=== PATIENT | female | born 1940 | race Caucasian/White ===

== ENCOUNTER 2019-04-29 12:09 | Observation (INO) | payer MEDICARE ==
[~2019-04-29] VITALS: Ht 162.6 cm; Wt 74.8 kg
[~2019-04-29 12:09] MED LIST: FLUTICASONE NASAL; LEVO125T11 PO
[2019-04-29] MEDS ORDERED: SODIUM CHLORIDE 0.9% 1000ML 1,000 ML IV ONE ×2 (12:12→12:37)
[2019-04-29] MEDS ORDERED: DILTIAZEM HCL 5 MG/ML 10 ML VIAL IV ONE (12:13)
[2019-04-29] MEDS ORDERED: DILTIAZEM HCL 125 MG/25 ML VIAL IV ONE (12:21)
[2019-04-29] MEDS ORDERED: SODIUM CHLORIDE 0.9% 100 ML IV ONE (12:22)
[2019-04-29 12:26] LABS: BASOPHILS % (AUTO) 0.4 % (0.0-5.0); EOSINOPHILS % (AUTO) 0.9 % (0.0-8.0); HEMATOCRIT 44.6 % (36-48); LYMPHOCYTES % (AUTO) 19.2 % (21.0-51.0); MEAN CORPUSCULAR HEMOGLOBIN 31.3 pg (27.0-33.0); MEAN CORPUSCULAR HGB CONC 33.3 g/dL (32.0-36.0); MEAN CORPUSCULAR VOLUME 93.9 fL (79-99); NEUTROPHILS % (AUTO) 72.5 % (40.0-77.0); NUCLEATED RED BLOOD CELLS 0.1 % (0.0-0.19); PLATELET COUNT (AUTO) 310 K/uL (130-400); RED BLOOD CELL COUNT(AUTO) 4.75 MIL/uL (4.00-5.50); RED CELL DISTRIBUTION WIDTH 13.2 % (11.0-15.5); WHITE BLOOD COUNT (AUTO) 11.1 K/uL (4.8-10.8)
[2019-04-29 12:36] LABS: CREATININE 0.7 mg/dL (0.5-1.5); POTASSIUM 3.6 mmol/L (3.5-5.1)
[2019-04-29 12:39] LABS: INR 0.95 (0.85-1.15); PARTIAL THROMBOPLASTIN TIME 27.3 SEC (26.3-35.5)
[2019-04-29 12:42] LABS: ALBUMIN 3.8 g/dL (3.5-5.0); BILIRUBIN,TOTAL 0.6 mg/dL (0.2-1.0); MAGNESIUM 2.1 mg/dL (1.80-2.40); TOTAL PROTEIN, SERUM 7.9 g/dL (6.0-8.3)
[2019-04-29] MEDS ORDERED: ASPIRIN 325 MG TABLET ONE (12:50)
[2019-04-29 12:59] LABS: B-TYPE NATRIURETIC PEPTIDE 78 pg/mL (0-100)
[2019-04-29 13:07] LABS: APPEARANCE,URINE Clear (CLEAR); BILIRUBIN,URINE Negative (NEGATIVE); COLOR,URINE Yellow (YELLOW); GLUCOSE, URINE (UA) Negative (NEGATIVE); KETONES,URINE Trace mg/dL (NEGATIVE); LEUKOCYTE ESTERASE ,URINE Small (NEGATIVE); NITRATE,URINE Negative (NEGATIVE); OCCULT BLOOD,URINE Negative (NEGATIVE); PH,URINE 6.5 (5.0-8.0); PROTEIN,URINE Negative (NEGATIVE); UROBILINOGEN,URINE 0.2 mg/dL (0.2-1.0)
[2019-04-29 13:26] LABS: BACTERIA,URINE Rare /HPF (None Seen); RBC,URINE 0-1 /HPF (0-1); SQUAMOUS EPITHELIAL CELL,UR Rare /HPF (0-2); WBC,URINE 0-1 /HPF (0-1)
[2019-04-29] MEDS ORDERED: ENOXAPARIN SODIUM 30 MG/0.3 ML SQ ONE (14:49)
[2019-04-29] MEDS ORDERED: ACETAMINOPHEN 325 MG TAB PO PRN (15:15)
[2019-04-29] MEDS ORDERED: DILTIAZEM 125MG+100 ML NS 125 ML IV SCH (15:15)
[2019-04-29] MEDS ORDERED: LORAZEPAM 0.5 MG TABLET PO PRN (15:15)
[2019-04-29] MEDS ORDERED: ONDANSETRON HCL 4 MG/2 ML VIAL IVP PRN (15:15)
[2019-04-29] MEDS ORDERED: ENOXAPARIN SODIUM 100 MG/1 ML SQ ONE (16:38)
[2019-04-29] MEDS ORDERED: METOPROLOL TARTRATE 25 MG TAB ONE (16:38)
[2019-04-29] MEDS ORDERED: PANTOPRAZOLE SODIUM 40 MG TABLET.DR PO ONE (16:38)
[2019-04-29] MEDS: INSULIN R PO SS1 SQ SCH (20:22)
[2019-04-29] MEDS: METOPROLOL TARTRATE 25 MG TAB PO SCH ×2 (20:29→20:30)
[2019-04-29 20:42] VITALS: BP 115/62
[2019-04-30 00:15] VITALS: BP 112/60
[2019-04-30 03:40] LABS: HEMATOCRIT 36.8 % (36-48); MEAN CORPUSCULAR HEMOGLOBIN 31.3 pg (27.0-33.0); MEAN CORPUSCULAR HGB CONC 33.4 g/dL (32.0-36.0); MEAN CORPUSCULAR VOLUME 93.9 fL (79-99); PLATELET COUNT (AUTO) 275 K/uL (130-400); RED BLOOD CELL COUNT(AUTO) 3.92 MIL/uL (4.00-5.50); RED CELL DISTRIBUTION WIDTH 12.9 % (11.0-15.5)
[2019-04-30 03:54] LABS: ALBUMIN 2.9 g/dL (3.5-5.0); BILIRUBIN,TOTAL 0.6 mg/dL (0.2-1.0); CREATININE 0.7 mg/dL (0.5-1.5); POTASSIUM 3.4 mmol/L (3.5-5.1); TOTAL PROTEIN, SERUM 6.2 g/dL (6.0-8.3)
[2019-04-30 03:59] LABS: T4 (THYROXINE) 9.3 ug/dL (4.7-13.3)
[2019-04-30 04:37] VITALS: BP 126/71
[2019-04-30] MEDS: INSULIN R PO SS1 SQ SCH (06:36)
[2019-04-30 07:24] VITALS: BP 134/74
[2019-04-30] MEDS: METOPROLOL TARTRATE 25 MG TAB PO SCH (08:25)
--- NOTE | 2019-04-30 08:30 | NUR ---
AM ASSESSMENT PT LAYING IN BED, HOB ELEVATED 30 DEGREES, WATCHING TV. A/O X 3 . NO SOB. NO DISTRESS NOTED. DENIES CHEST PAIN OR DISCOMFORT. DENIES PALPITATIONS. TELE: SR 70s. DENIES N/V AND/OR DIARRHEA. UP W/ASSISTANCE. INSTRUCTED TO CALL FOR ASSISTANCE. CALL TUCKER W/IN REACH.
[2019-04-30] MEDS ORDERED: PANTOPRAZOLE SODIUM 40 MG TABLET.DR PO SCH (09:00)
[2019-04-30] MEDS ORDERED: ENOXAPARIN SODIUM 80 MG/0.8 ML SQ SCH (09:00)
[2019-04-30] MEDS ORDERED: ASPIRIN 81 MG EC TAB PO SCH (09:00)
[2019-04-30 11:06] VITALS: BP 137/72
[2019-04-30] MEDS ORDERED: APIX5TAB PO (11:52)
[2019-04-30] MEDS ORDERED: METO25 PO (11:52)
[2019-04-30] MEDS ORDERED: LIDOCAINE HCL-MPF 1% 2ML VIAL IVP PRN (13:30)
[2019-04-30] MEDS ORDERED: POTASSIUM CHLORIDE 20MEQ/100ML 100 ML IV PRN (13:30)
[2019-04-30] MEDS ORDERED: POTASSIUM CHLORIDE 10% ELIXIR 20 MEQ/15 ML UDCUP PO PRN (13:30)
[2019-04-30] MEDS ORDERED: POTASSIUM CHLORIDE 20 MEQ ERTAB PO PRN (13:30)
--- NOTE | 2019-04-30 14:05 | NUR ---
NOTIFICATION KANE LARES PIPE MAKER NOTIFIED DR VALDEZ PLANS TO DC PT HOME THIS EVENING IF 2D ECHO NORMAL. PT TO GET CARDIAC EVENT MONITOR [email or web address].
--- NOTE | 2019-04-30 15:30 | NUR ---
DISCHARGE TELE NORMA REMOVED. IV DISCONTINUED.
--- NOTE | 2019-04-30 15:45 | NUR ---
DISCHARGE VERBAL & WRITTEN DISCHARGE INSTRUCTIONS REVIEWED & GIVEN TO P& DAUGHTER. QUESTIONS ENCOURAGED & CLARIFIED. PROPER IDENTIFICATION & MGT OF AFIB REVIEWED. NEW PRESCRIBED MEDICATIONS REVIEWED. PRESCRIPTION GIVEN TO PT; SIGNED COPY PLACED IN CHART. PT TO GO TO [facility] 05/01/19 TO PICK CARDIAC EVENT MONITOR. F/U APPT INFO REVIEWED. PT & DAUGHTER TO GATHER PERSONAL BELONGINGS. WILL NOTIFY STAFF WHEN READY TO BE TAKEN TO PRIVATE VEHICLE.
[2019-04-30 15:47] VITALS: BP 138/81
--- NOTE | 2019-04-30 16:05 | NUR ---
DISCHARGE PT TAKEN TO PRIVATE VEHICLE VIA WC BY A [facility]NY PCP, ACCOMPANIED BY DAUGHTER. NO DISTRESS NOTED.
[2019-04-30] MEDS ORDERED: APIXABAN 5 MG TABLET PO SCH (21:00)
[2019-05-01] MEDS ORDERED: LEVOTHYROXINE 125 MCG TABLET PO SCH (09:00)
== END 2019-04-30 16:05 | disposition home or self-care (01) ==
LOC: EDH 12:09 → EDHIP 13:10 → 2AH 20:15
PROVIDERS: ADMIT Internal Medicine; ATTEND Internal Medicine
DX: I48.0 Paroxysmal atrial fibrillation (principal); E78.5 Hyperlipidemia, unspecified; E87.6 Hypokalemia; R55 Syncope and collapse; E89.0 Postprocedural hypothyroidism; I10 Essential (primary) hypertension; I34.0 Nonrheumatic mitral (valve) insufficiency; Z82.49 Family history of ischemic heart disease and other diseases of the circulatory system; Z87.442 Personal history of urinary calculi; Z90.710 Acquired absence of both cervix and uterus; Z90.49 Acquired absence of other specified parts of digestive tract; Z88.0 Allergy status to penicillin; Z88.2 Allergy status to sulfonamides
CPT/HCPCS: 36415 ×2; 70450; 71045; 71250; 80053 ×2; 80061; 81001; 82550; 83735; 83880; 84436; 84443; 84484 ×3; 85025; 85027; 85610; 85730; 93005 ×3; 93306; 96372; 99291; G0378 ×27; J1650 ×3; J3490 ×2; J7030 ×2

== ENCOUNTER 2019-05-20 08:43 | Emergency (ER) | payer MEDICARE ==
[~2019-05-20 08:43] MED LIST changes: +APIX5TAB PO; +METO25 PO
[2019-05-20 09:55] LABS: BASOPHILS % (AUTO) 0.5 % (0.0-5.0); EOSINOPHILS % (AUTO) 1.5 % (0.0-8.0); HEMATOCRIT 40.6 % (36-48); LYMPHOCYTES % (AUTO) 21.2 % (21.0-51.0); MEAN CORPUSCULAR HGB CONC 33.3 g/dL (32.0-36.0); MEAN CORPUSCULAR VOLUME 93.3 fL (79-99); MONOCYTES % (AUTO) 8.2 % (3.0-13.0); NEUTROPHILS % (AUTO) 68.6 % (40.0-77.0); PLATELET COUNT (AUTO) 279 K/uL (130-400); RED BLOOD CELL COUNT(AUTO) 4.35 MIL/uL (4.00-5.50); RED CELL DISTRIBUTION WIDTH 13.6 % (11.0-15.5); WHITE BLOOD COUNT (AUTO) 7.4 K/uL (4.8-10.8)
[2019-05-20 10:07] LABS: CREATININE 0.6 mg/dL (0.5-1.5); POTASSIUM 3.9 mmol/L (3.5-5.1)
[2019-05-20 10:08] LABS: INR 1.02 (0.85-1.15); PROTHROMBIN TIME 10.7 SEC (9.6-11.6)
[2019-05-20 10:12] LABS: ALBUMIN 3.4 g/dL (3.5-5.0); BILIRUBIN,TOTAL 0.7 mg/dL (0.2-1.0); TOTAL PROTEIN, SERUM 7.1 g/dL (6.0-8.3)
[2019-05-20 10:22] LABS: PARTIAL THROMBOPLASTIN TIME 30.1 SEC (26.3-35.5)
== END 2019-05-20 12:00 | disposition home or self-care (01) ==
LOC: EDH 08:43
DX: S86.911A Strain of unspecified muscle(s) and tendon(s) at lower leg level, right leg, initial encounter (principal); E78.5 Hyperlipidemia, unspecified; I10 Essential (primary) hypertension; E07.9 Disorder of thyroid, unspecified; Z98.890 Other specified postprocedural states; Z90.89 Acquired absence of other organs; Z88.1 Allergy status to other antibiotic agents; Z88.2 Allergy status to sulfonamides; X58.XXXA Exposure to other specified factors, initial encounter; Y93.89 Activity, other specified; Y92.009 Unspecified place in unspecified non-institutional (private) residence as the place of occurrence of the external cause; Y99.8 Other external cause status
CPT/HCPCS: 36415; 80053; 85025; 85610; 85730; 93971

== ENCOUNTER → 2019-12-17 | Outpatient (CLI) | payer MEDICARE ==
[~2019-12-17] MED LIST changes: +IOHEXOL 350 MG/ML 100ML INFUS..BTL IV ONE
== END | disposition home or self-care (01) ==
LOC: RAH 08:51
PROVIDERS: ATTEND Urology
DX: N20.0 Calculus of kidney (principal); M47.814 Spondylosis without myelopathy or radiculopathy, thoracic region
CPT/HCPCS: 74400; Q9967

== ENCOUNTER → 2020-05-16 | Outpatient (CLI) | payer MEDICARE | END | disposition home or self-care (01) | LOC: RAH 09:57 | PROVIDERS: ATTEND Physical Medicine & Rehabilitation | DX: M43.17 Spondylolisthesis, lumbosacral region (principal); M48.07 Spinal stenosis, lumbosacral region ==

== ENCOUNTER → 2020-06-10 | Outpatient (CLI) | payer MEDICARE ==
[~2020-06-10] MED LIST changes: -IOHEXOL 350 MG/ML 100ML INFUS..BTL IV ONE
== END | disposition home or self-care (01) ==
LOC: RAH 08:36
PROVIDERS: ATTEND Physical Medicine & Rehabilitation
DX: M51.26 Other intervertebral disc displacement, lumbar region (principal); M43.16 Spondylolisthesis, lumbar region; M54.16 Radiculopathy, lumbar region
CPT/HCPCS: 72148

== ENCOUNTER → 2022-09-11 | Outpatient (CLI) | payer MEDICARE | END | disposition home or self-care (01) | LOC: SHCH 12:56 | PROVIDERS: ATTEND Internal Medicine Cardiovascular Disease | DX: I37.1 Nonrheumatic pulmonary valve insufficiency (principal); R07.9 Chest pain, unspecified; R55 Syncope and collapse | CPT/HCPCS: 93306 ==

== ENCOUNTER → 2022-09-14 | Outpatient (CLI) | payer MEDICARE ==
[~2022-09-14] MED LIST changes: +REGADENOSON 0.4 MG/5 ML PF SYG IVP SCH
== END | disposition home or self-care (01) ==
LOC: SHCH 08:29
PROVIDERS: ATTEND Internal Medicine Cardiovascular Disease
DX: R07.9 Chest pain, unspecified (principal); R55 Syncope and collapse
CPT/HCPCS: 78452; 96374; 93017; J2785; A9500 ×2

== ENCOUNTER 2022-10-16 09:21 | Day surgery (SDC) | payer MEDICARE ==
[2022-10-12 09:23] LABS: BASOPHILS % (AUTO) 0.3 % (0.0-5.0); EOSINOPHILS % (AUTO) 1.6 % (0.0-8.0); HEMATOCRIT 45.7 % (36-48); LYMPHOCYTES % (AUTO) 24.4 % (21.0-51.0); MEAN CORPUSCULAR HEMOGLOBIN 30.1 pg (27.0-33.0); MEAN CORPUSCULAR HGB CONC 32.2 g/dL (32.0-36.0); MEAN CORPUSCULAR VOLUME 93.5 fL (79-99); MONOCYTES % (AUTO) 6.8 % (3.0-13.0); NEUTROPHILS % (AUTO) 66.5 % (40.0-77.0); PLATELET COUNT (AUTO) 299 K/uL (130-400); RED BLOOD CELL COUNT(AUTO) 4.89 MIL/uL (4.00-5.50); RED CELL DISTRIBUTION WIDTH 14.2 % (11.0-15.5); WHITE BLOOD COUNT (AUTO) 7.9 K/uL (4.8-10.8)
[2022-10-12 09:36] LABS: INR 0.98 (0.85-1.15); PROTHROMBIN TIME 10.7 SEC (9.6-11.6)
[2022-10-12 09:37] LABS: PARTIAL THROMBOPLASTIN TIME 27.8 SEC (26.3-35.5)
[2022-10-12 09:46] LABS: B-TYPE NATRIURETIC PEPTIDE 51 pg/mL (0-100)
[2022-10-12 10:02] LABS: CREATININE 0.7 mg/dL (0.5-1.5); POTASSIUM 4.2 mmol/L (3.5-5.1)
[2022-10-15 12:15] VITALS: BP 171/70
[2022-10-16] VITALS (10 sets, daily range): BP systolic 132–168; BP diastolic 62–82
[~2022-10-16] VITALS: Ht 160 cm; Wt 78.9 kg
[~2022-10-16 09:21] MED LIST changes: +CALC-1209 PO; +DiphenhydrAMINE HCL 50 MG/ML VIAL IVP SCH; +EZET10TA48 PO; +FLUT16H NASAL; -FLUTICASONE NASAL; -METO25 PO; +OMEP20TA2 PO; -REGADENOSON 0.4 MG/5 ML PF SYG IVP SCH; +SOLU-MEDROL 125MG VIAL IVP SCH; +SOTA80TA PO
[2022-10-16] MEDS ORDERED: 0.9%NACL 1000ML 1,000 ML IV ONE (09:31)
[2022-10-16 09:48] LABS: APPEARANCE,URINE CLEAR (CLEAR); BILIRUBIN,URINE NEGATIVE (NEGATIVE); COLOR,URINE LIGHT-YELLOW (YELLOW); GLUCOSE, URINE (UA) NEGATIVE (NEGATIVE); KETONES,URINE NEGATIVE (NEGATIVE); LEUKOCYTE ESTERASE ,URINE 250 Leu/uL (NEGATIVE); NITRATE,URINE NEGATIVE (NEGATIVE); OCCULT BLOOD,URINE SMALL (NEGATIVE); PH,URINE 6.5 (5.0-8.0); PROTEIN,URINE NEGATIVE (NEGATIVE); UROBILINOGEN,URINE 0.2 mg/dL (0.2-1.0)
[2022-10-16 10:00] LABS: BACTERIA,URINE RARE /HPF (None Seen); MUCUS,URINE RARE LPF (None Seen); SQUAMOUS EPITHELIAL CELL,UR RARE /HPF (0-2)
[2022-10-16] MEDS ORDERED: NITROGLYCERIN 50MG VIAL ONE (11:00)
[2022-10-16] MEDS ORDERED: HEPARIN 10,000 UNIT/10ML (1,000 UNIT/ML) VIAL ONE (11:00)
[2022-10-16] MEDS ORDERED: IOHEXOL-350 50ML VIAL IV ONE (11:00)
[2022-10-16] MEDS ORDERED: IOHEXOL 350 MG/ML 100ML INFUS..BTL IV ONE (11:01)
[2022-10-16] MEDS ORDERED: MIDAZOLAM HCL 1 MG/ML 2ML VIAL ONE (11:01)
[2022-10-16] MEDS ORDERED: FENTANYL CITRATE PF 50 MCG/1 ML 2ML VIAL ONE (11:01)
[2022-10-16] MEDS ORDERED: LIDOCAINE HCL 400MG/20ML VIAL ONE (11:01)
== END 2022-10-16 16:00 | disposition home or self-care (01) ==
LOC: DAH 09:21
PROVIDERS: ATTEND Internal Medicine Cardiovascular Disease
DX: I25.118 Atherosclerotic heart disease of native coronary artery with other forms of angina pectoris (principal); I50.32 Chronic diastolic (congestive) heart failure; I47.29 Other ventricular tachycardia; R55 Syncope and collapse; I48.0 Paroxysmal atrial fibrillation; I25.2 Old myocardial infarction; E03.9 Hypothyroidism, unspecified; Z79.890 Hormone replacement therapy; Z79.01 Long term (current) use of anticoagulants; Z79.899 Other long term (current) drug therapy; Z88.0 Allergy status to penicillin; Z90.710 Acquired absence of both cervix and uterus; Z90.49 Acquired absence of other specified parts of digestive tract; Z98.890 Other specified postprocedural states; Z88.8 Allergy status to other drugs, medicaments and biological substances; Z88.2 Allergy status to sulfonamides; Z82.49 Family history of ischemic heart disease and other diseases of the circulatory system; Z80.9 Family history of malignant neoplasm, unspecified; Z88.3 Allergy status to other anti-infective agents
CPT/HCPCS: 80048; 83880; 85025; 85610; 85730; 36415; 71045; 93005; 93458; 87088; 81001; C1894; C1760; J1200; J3490 ×2; J7030; J2930; J2250; J1644; Q9967; A4215; A4222; A4221; A4663; A4216; A4606; Q9965; A4223 ×3; 96374; 96375; 99156; 99157; J3010

== ENCOUNTER → 2023-09-26 | Outpatient (CLI) | payer MEDICARE ==
[~2023-09-26] MED LIST changes: +CALC-190 PO; +CHOL400T33 PO; +CYAN10007 SQ; +CYCL30DR OU; -DiphenhydrAMINE HCL 50 MG/ML VIAL IVP SCH; +LEVO-70 PO; +METO-408 PO; +METR-172 PO; +OMEP20CA12 PO; +PSEU-225 PO; -SOLU-MEDROL 125MG VIAL IVP SCH
== END | disposition home or self-care (01) ==
LOC: RAH 10:43
PROVIDERS: ATTEND Physical Medicine & Rehabilitation
DX: M43.16 Spondylolisthesis, lumbar region (principal); M54.2 Cervicalgia; M99.01 Segmental and somatic dysfunction of cervical region; M48.061 Spinal stenosis, lumbar region without neurogenic claudication; M47.812 Spondylosis without myelopathy or radiculopathy, cervical region; M48.02 Spinal stenosis, cervical region
CPT/HCPCS: 72050; 72114

== ENCOUNTER → 2023-10-15 | Outpatient (CLI) | payer MEDICARE | END | disposition home or self-care (01) | LOC: RAH 13:09 | PROVIDERS: ATTEND Physical Medicine & Rehabilitation | DX: M43.16 Spondylolisthesis, lumbar region (principal); M48.061 Spinal stenosis, lumbar region without neurogenic claudication | CPT/HCPCS: 72148 ==

== ENCOUNTER → 2025-04-14 | Outpatient (CLI) | payer MEDICARE ==
[~2025-04-14] MED LIST changes: +IOHEXOL-350 75 ML VIAL IV ONE
--- NOTE | 2025-04-14 13:33 | HMCIMG ---
CT abdomen pelvis without contrast History: Pain COMPARISON: None Technique: Routine helical scanning at 5mm collimation through the abdomen and pelvis was performed after oral and intravenous contrast. Findings: The lung bases are clear. Gallbladder is surgically absent. The liver, spleen, pancreas, adrenal glands and kidneys are normal in appearance except for nonobstructing left nephrolithiasis. No pathologic lymphadenopathy is evident. The intestinal gas pattern shows no evidence of dilatation to suggest obstruction or adynamic ileus. There is no evidence of constipation and no bowel wall lesions are noted to suggest neoplasm. There is diverticulosis of the colon, particularly involving the sigmoid. In addition, there are acute inflammatory changes to suggest acute diverticulitis. There is no evidence There is no evidence of pneumoperitoneum. The appendix is unremarkable. The pelvic viscera are normal in CT appearance. The perirectal fat planes are clear. The visualized osseous elements are normal for the patient's age. IMPRESSION: Acute sigmoid diverticulitis. No evidence of perforation.
== END | disposition home or self-care (01) ==
LOC: RAH 11:10
PROVIDERS: ATTEND Family Medicine
DX: K57.32 Diverticulitis of large intestine without perforation or abscess without bleeding (principal); R63.4 Abnormal weight loss; R19.8 Other specified symptoms and signs involving the digestive system and abdomen
CPT/HCPCS: 74176; Q9967

== ENCOUNTER 2025-05-08 17:12 | Emergency (ER) | payer MEDICARE ==
[~2025-05-08] VITALS: Ht 160 cm; Wt 77.1 kg
[~2025-05-08 17:12] MED LIST changes: -IOHEXOL-350 75 ML VIAL IV ONE
[2025-05-08 17:35] LABS: BASOPHILS # (AUTO) 0.02 K/uL (0.00-0.20); BASOPHILS % (AUTO) 0.2 % (0.0-5.0); EOSINOPHILS # (AUTO) 0.26 K/uL (0.00-0.70); EOSINOPHILS % (AUTO) 2.1 % (0.0-8.0); HEMATOCRIT 42.1 % (36-48); IMMATURE GRANULOCYTE ABSOLUTE 0.04 K/uL (0-1); LYMPHOCYTES # (AUTO) 2.1 K/uL (1.0-4.8); LYMPHOCYTES % (AUTO) 16.2 % (21.0-51.0); MEAN CORPUSCULAR HEMOGLOBIN 29.1 pg (27.0-33.0); MEAN CORPUSCULAR HGB CONC 32.5 g/dL (32.0-36.0); MEAN CORPUSCULAR VOLUME 89.6 fL (79-99); MONOCYTES # (AUTO) 1.1 K/uL (0.1-1.0); MONOCYTES % (AUTO) 8.3 % (3.0-13.0); NEUTROPHILS # (AUTO) 9.2 K/uL (1.8-7.7); NEUTROPHILS % (AUTO) 72.9 % (40.0-77.0); PLATELET COUNT (AUTO) 390 K/uL (130-400); RED CELL DISTRIBUTION WIDTH 14.5 % (11.0-15.5); WHITE BLOOD COUNT (AUTO) 12.6 K/uL (4.8-10.8)
[2025-05-08] MEDS: MAGNESIUM CITRATE 296 ML SOLUTION PO ONE (17:35)
[2025-05-08] MEDS: LACTULOSE 20 GM/30 ML UDCUP PO ONE (17:35)
--- NOTE | 2025-05-08 17:40 | NUR ---
X1 SALINE ENEMA GIVEN PER ORDER. TOLERATED WELL
[2025-05-08 17:42] LABS: CREATININE 0.6 mg/dL (0.5-1.0); POTASSIUM 3.7 mmol/L (3.5-5.1)
--- NOTE | 2025-05-08 18:14 | HMCIMG ---
Exam Type: ABD 1VW Clinical Information: constipation Comparison: None Findings: Abdomen demonstrates no evidence of pathologic calcification or soft tissue mass. There are no radiopacities to suggest calculous disease. The intestinal gas pattern is within normal limits without evidence of dilatation to suggest obstruction or adynamic ileus. The bony structures are unremarkable. IMPRESSION: Normal abdomen.
--- NOTE | 2025-05-08 18:23 | ERN ---
General Chief Complaint: Constipation Stated Complaint: CONSTIPATION Time Seen by MD: 17:14 Source: patient History of Present Illness Initial Comments This is a an 84-year-old female coming in to be evaluated for constipation. Per patient she has not been able to defecate for three days. She has taken [id number] medications she states it has not been successful. Allergies: Coded Allergies: Iodinated Contrast Media (Unverified Allergy, Severe, RASH, 03/22/23) Penicillins (Unverified Allergy, Unknown, 11/07/16) Sulfa (Sulfonamide Antibiotics) (Unverified Allergy, Unknown, 11/07/16) iodine (Unverified Allergy, Unknown, 10/15/22) Home Meds Active Scripts Metronidazole (Metronidazole) 500 Mg Tablet, 500 MG PO TID for 7 Days, #21 TAB Prov:KANDACE BRIONES BUSINESS AND MARKETING TEACHER 10/26/22 Levofloxacin (Levofloxacin) 500 Mg Tablet, 500 MG PO DAILY for 7 Days, #7 TAB Prov:KANDACE BRIONES BUSINESS AND MARKETING TEACHER 10/26/22 Reported Medications Pseudoephedrine HCl (Pseudoephedrine HCl) 60 Mg Tablet, 60 MG PO QDP, TAB 10/25/22 Cholecalciferol (Vitamin D3) (Vitamin D-400) 10 Mcg Tablet, 10 MCG PO DAILY, TAB 10/25/22 Calcium Carbonate/Vitamin D3 (Calcium + Vitamin D Tablet) 1 Each Tablet, 600 EACH PO AM, TAB 10/25/22 Fluticasone Propionate (Flonase Nasal [place]) 50 Mcg/[place], 50 MCG NASAL Q4HPRN, SPRAY 10/25/22 Omeprazole (Omeprazole) 20 Mg Capsule.dr, 20 MG PO AM, CAP 10/25/22 Cyanocobalamin (Vitamin B-12) (Cyanocobalamin Injection) 1,000 Mcg/1 Ml Vial, 1 ML SQ QMONTH 10/25/22 Cyclosporine (Restasis) 1 Each Droperette, 0.06 DROP OU BID 10/25/22 Ezetimibe (Ezetimibe) 10 Mg Tablet, 1 TAB PO QDP 10/25/22 Sotalol HCl (Sotalol) 80 Mg Tablet, 1 TAB PO BID 10/25/22 Levothyroxine Sodium (Levothyroxine Sodium) 125 Mcg Tablet, 1 TAB PO QDP 10/25/22 Metoprolol Succinate (Metoprolol Succinate) 25 Mg Tab.er.24h, 0.5 TAB PO QDP 10/25/22 Apixaban (Eliquis) 5 Mg Tablet, 1 TAB PO BID 10/25/22 Calcium Carbonate/Vitamin D3 (Calcium 600 + Vit D Tablet) 1 Each Tablet, 1 EACH PO BID, TAB 10/15/22 Fluticasone Propionate (Flonase Nasal [place]) 50 Mcg/[place], 1 SPRY NASAL HS, SPRAY 10/15/22 Omeprazole Magnesium (Prilosec Otc) 20 Mg Tablet.dr, 20 MG PO HS, TAB 10/15/22 Ezetimibe (Ezetimibe) 10 Mg Tablet, 10 MG PO HS, TAB 10/15/22 Apixaban (Eliquis) 5 Mg Tablet, 5 MG PO BID, TAB START ELIQUIS ON 10/17/22 10/15/22 Sotalol HCl (Sotalol) 80 Mg Tablet, 80 MG PO BID, TAB 10/15/22 Levothyroxine Sodium (Levothyroxine Sodium) 125 Mcg Tablet, 125 MCG PO AM, TAB 11/07/16 Past Medical History Past Medical History: A-Fib, Diverticulosis, Other Medical History Other: constipation Past Surgical History: Hysterectomy, Cholecystectomy, Other Surgical History Other: back sx ROS Dictation CONSTITUTIONAL: No chills, no fever, no weakness, no diaphoresis, no malaise. HEAD/FACE: No signs of trauma. EENT: No eye pain, no blurred vision, no tearing, no double vision, no ear pain, no ear discharge, no nose pain, no nasal congestion, no throat pain, no throat swelling, no mouth pain. RESPIRATORY: No cough, no orthopnea, no SOB, no stridor, no wheezing. CARDIOVASCULAR: No chest pain, no edema, no palpitations, no syncope. GASTROINTESTINAL/ABDOMINAL: abdominal pain, constipation, no diarrhea, no nausea, no vomiting. GENITOURINARY: No abnormal discharge, no dysuria, no frequent urination, no hematuria. No complaints of pain in the genitals. MUSCULOSKELETAL: No back pain, no gout, no joint pain, no joint swelling, no muscle pain, no muscle stiffness, no neck pain. INTEGUMENTARY: No change in color, no change in hair/nails, no dryness, no lesion, no lumps, no rash. NEUROLOGICAL/PSYCH: No anxiety, not depressed, no emotional problem, no headache, no numbness, no pre-existing deficit, no history of seizures, no tremors, no weakness. HEMATOLOGIC/LYMPHATIC: Not anemic, no history of blood clots, no apparent bleeding, no bruising, glands not swollen. All Systems Negative, Except as Noted. Physical Exam Physical Exam Dictation VITAL SIGNS: Reviewed. GENERAL APPEARANCE: Alert, oriented x3, no acute distress, obese. HEAD AND FACE: Non-traumatic. EYES: PERRL, pink conjunctivas, eyelid no trauma, anterior chamber clear. EARS: Pinnas intact and no signs of trauma or erythema. Ear canals clear and no discharge. TMs no erythema. NOSE: No discharge, no bleeding. OROPHARYNX: Mouth normal, teeth no caries, tongue pink. Pharynx clear, no erythema. Tonsils no exudates, no abscesses noted. Mucous membrane moist. NECK: Supple, non-tender, no thyromegaly, no masses, no JVD, no bruits. BREAST: Deferred. CHEST: No tenderness, no crepitus, no paradoxical movement, no retractions. LUNGS: Clear, well-ventilated, symmetric, no rales, no wheezing, no rhonchi, no stridor, good breath sounds bilaterally. HEART: Regular rate, regular rhythm, no murmur, no gallops. VASCULAR: No peripheral edema. ABDOMEN: Soft, positive bowel sounds, nondistended, no guarding, nontender, no rebound, no masses no hepatomegaly, no splenomegaly, no Hernandez's sign, no hernias. RECTAL: Deferred. GENITAL: Deferred. NEUROLOGICAL: Normal speech, gross motor function intact, gross sensory function intact. MUSCULOSKELETAL: Neck nontender, full range of motion, back nontender, full range of motion. EXTREMITIES: Nontender, full range of motion. SKIN: Color pink, dry, no turgor, no rash, no lacerations, no abrasions, no contusions. LYMPHATICS: Deferred. Results Laboratory and Microbiology Lab and Micro Result Laboratory Tests Test 05/08/25 17:30 White Blood Count 12.6 K/uL (4.8-10.8) H Red Blood Count 4.70 MIL/uL (4.00-5.50) Hemoglobin 13.7 g/dL (12.0-16.0) Hematocrit 42.1 % (36-48) Mean Corpuscular Volume 89.6 fL (79-99) Mean Corpuscular Hemoglobin 29.1 pg (27.0-33.0) Mean Corpuscular Hemoglobin Concent 32.5 g/dL (32.0-36.0) Red Cell Distribution Width 14.5 % (11.0-15.5) Platelet Count 390 K/uL (130-400) Mean Platelet Volume 9.0 fL (7.5-10.5) Immature Granulocyte % (Auto) 0.3 % (0-1) Neutrophils (%) (Auto) 72.9 % (40.0-77.0) Lymphocytes (%) (Auto) 16.2 % (21.0-51.0) L Monocytes (%) (Auto) 8.3 % (3.0-13.0) Eosinophils (%) (Auto) 2.1 % (0.0-8.0) Basophils (%) (Auto) 0.2 % (0.0-5.0) Neutrophils # (Auto) 9.2 K/uL (1.8-7.7) H Lymphocytes # (Auto) 2.1 K/uL (1.0-4.8) Monocytes # (Auto) 1.1 K/uL (0.1-1.0) H Eosinophils # (Auto) 0.26 K/uL (0.00-0.70) Basophils # (Auto) 0.02 K/uL (0.00-0.20) Absolute Immature Granulocyte (auto 0.04 K/uL (0-1) Nucleated Red Blood Cells 0.0 % (0.0-0.19) Sodium Level 137 mmol/L (136-145) Potassium Level 3.7 mmol/L (3.5-5.1) Chloride Level 103 mmol/L (101-111) Carbon Dioxide Level 29 mmol/L (21-32) Blood Urea Nitrogen 14 mg/dL (7-18) Creatinine 0.6 mg/dL (0.5-1.0) Glomerular Filtration Rate Calc 87 mL/min (>90) Random Glucose 113 mg/dL (70-105) H Total Calcium 8.9 mg/dL (8.5-10.1) Labs Reviewed?: Yes MDM MDM: Differential diagnosis: Constipation, abdominal pain, Rationale: Tests considered and ordered secondary to shared decision making include: Previous outside records reviewed: Old ER visits. Risk of complication and/or morbidity or mortality of patient management: None Medications-Per medication reconciliation Patient is a 84-year-old female coming in to be evaluated supination. Oral he is in his given as well as feeling time was mild successfully digital disimpaction. I have successfully. Patient will be discharged in stable condition with a diagnosis of constipation did advised her appropriate follow up with PCP in 1-2 days. ED Course Orders Procedure Category Date Status Time Cbc With Differential LAB 05/08/25 Complete 17:17 Basic Metabolic Panel LAB 05/08/25 Complete 17:17 Abd 1vw RAD 05/08/25 Resulted 17:17 Lactulose 20 Gm/30 Ml PHA 05/08/25 Complete Udcup (Constulose 17:30 Magnesium Citrate PHA 05/08/25 Complete (Magnesium Citrate) 17:30 Enema Instructions CPOE 05/08/25 Transmitted 17:17 Current Medications Medications (Trade) Dose Ordered Sig/Sheldon Route PRN Reason Start Time Stop Time Status Last Admin Dose Admin Lactulose (Constulose 20gm/ 30ml Udcup) 20 gm ONCE ONCE PO 05/08/25 17:30 05/08/25 17:32 DC 05/08/25 17:35 Magnesium Citrate (Magnesium Citrate) 296 ml ONCE ONCE PO 05/08/25 17:30 05/08/25 17:32 DC 05/08/25 17:35 Vital Signs Date Time Temp Pulse Resp B/P (MAP) Pulse Ox O2 Delivery O2 Flow Rate FiO2 05/08/25 17:19 97.9 95 16 151/97 95 Room Air* 0 21 DX & DISP Disposition: Discharge Departure Impression: Primary Impression: Constipation Condition: Stable Additional Instructions: FOLLOW-UP WITH PRIMARY CARE PROVIDER IN 1 TO 2 DAYS. TAKE MEDICATIONS DIRECTED HERE IN THE EMERGENCY ROOM. OKAY TO CONTINUE HOME MEDICATIONS UNLESS OTHERWISE DISCUSSED DURING YOUR VISIT IN THE EMERGENCY ROOM TODAY. RETURN TO YOUR NEAREST EMERGENCY ROOM IF SYMPTOMS WORSEN OR IF THERE IS NO IMPROVEMENT. CALL 911 IF YOU NEED IMMEDIATE ASSISTANCE. TAKE TYLENOL [id number] NEEDED AND IF NO CONTRAINDICATIONS ARE PRESENT. INCREASE ORAL HYDRATION. A WOUND CULTURE OR URINE CULTURE WAS ORDERED HERE IN THE EMERGENCY ROOM DEPARTMENT PLEASE FOLLOW-UP WITH PRIMARY CARE PROVIDER AND ADVISE THEM TO GET REPORTS FROM OUR FACILITY. IF YOU HAD ANY ANDREW WRAP/SPLINTS THAT WERE APPLIED HERE, PLEASE DO NOT REMOVE THEM UNTIL YOU SEE YOUR PRIMARY CARE OR SPECIALTY. Referrals: Referrals: ZANDRA PASCAL MD (PCP) Time of Disposition: 18:23 RODERICK ESTEVEZ MD May 08, 2025 18:23
[2025-05-08 18:24] VITALS: BP 155/97; PULSE 91; RESP 16; TEMP 97.9; O2SAT 97
== END 2025-05-08 18:32 | disposition home or self-care (01) ==
LOC: EDH 17:12
DX: K59.00 Constipation, unspecified (principal); I48.91 Unspecified atrial fibrillation; Z79.01 Long term (current) use of anticoagulants; Z79.621 Long term (current) use of calcineurin inhibitor; Z79.899 Other long term (current) drug therapy; Z88.0 Allergy status to penicillin; Z88.2 Allergy status to sulfonamides; Z88.8 Allergy status to other drugs, medicaments and biological substances; Z90.49 Acquired absence of other specified parts of digestive tract; Z90.710 Acquired absence of both cervix and uterus; Z91.041 Radiographic dye allergy status
CPT/HCPCS: 36415; 74018; 80048; 85025; 99284